=== PATIENT | male | born 2005 | race Hispanic/Latino ===

== ENCOUNTER 2024-12-25 13:49 | Emergency (ER) | payer OTHER ==
[2024-12-25] MEDS ORDERED: Bacitracin 1 PK ONE (15:34)
[2024-12-25] MEDS ORDERED: Lidocaine 1% (PF) 30 ML VIAL ONE (15:34)
[2024-12-25] MEDS ORDERED: Boostrix 0.5 ML (Tdap) VIAL (>/=7 yrs of age) ONE (16:21)
== END 2024-12-25 16:27 | disposition home or self-care (01) ==
LOC: ERS 13:49
DX: S61.012A Laceration without foreign body of left thumb without damage to nail, initial encounter (principal); F17.290 Nicotine dependence, other tobacco product, uncomplicated; Z23 Encounter for immunization; W26.8XXA Contact with other sharp object(s), not elsewhere classified, initial encounter
CPT/HCPCS: 12002; 90471; 90715